=== PATIENT | male | born 1980 | race Hispanic/Latino ===

== ENCOUNTER 2017-09-17 16:10 | Emergency (ER) | payer OTHER ==
[2017-09-17 16:15] VITALS: BP 162/82; PULSE 16; RESP 96; TEMP 98.8; O2SAT 96
[2017-09-17 16:16] VITALS: BMI 32.7
--- NOTE | 2017-09-17 16:26 | ED PDOC ---
Lower Extremity Pain/Injury Time Seen by Provider: 09/17/17 16:17 Chief Complaint (Nursing): Lower Extremity Problem/Injury History Per: Patient Onset/Duration Of Symptoms: Days (2) Severity: Moderate Pain Scale Rating Of: 4 Additional Complaint(s): S/p tendon surgery left foot 11 days ago. Has had pain and fever. pain at surgical site. Denies calf pain or Chest pain or SOB. T max 102.4 Past Medical History Vital Signs: Last Vital Signs Temp 98.8 F 09/17/17 16:15 Pulse 16 L 09/17/17 16:15 Resp 96 H 09/17/17 16:15 BP 162/82 H 09/17/17 16:15 Pulse Ox 96 09/17/17 16:15 - Medical History PMH: Hypothyroidism - Family History Family History: States: Unknown Family Hx - Home Medications Home Medications: Ambulatory Orders Medication Instructions Recorded traMADol [Ultram] 50 mg PO Q8 #10 tab 09/17/17 - Allergies Allergies/Adverse Reactions: Allergies Allergy/AdvReac Type Severity Reaction Status Date / Time Penicillins Allergy Mild RASH Verified 09/17/17 16:18 Review of Systems Constitutional: Positive for: Fever Cardiovascular: Negative for: Chest Pain Respiratory: Negative for: Shortness of Breath Musculoskeletal: Positive for: Foot Pain Physical Exam - Physical Exam Appears: Positive for: Non-toxic, No Acute Distress Skin: Positive for: Normal Color, Warm, DRY Extremity: Positive for: Other (Left ankle /foot. Wound clean and dry. No drainage. Mild erythema and swelling surrounding incision site.). Negative for : Calf Tenderness, Swelling (No calf swelling) - Laboratory Results Result Diagrams: 09/17/17 17:10 09/17/17 17:10 - ECG O2 Sat by Pulse Oximetry: 96 Medical Decision Making Medical Decision Making: Discussed with podiatry. No evidence of infection at surgical site No other source of infevtion idebntified. Will DC antibiotics as this may have been rxn to meds. To f/u with Dr. Esteban tomorrow Disposition - Clinical Impression Clinical Impression: Fever - Patient ED Disposition Is Patient to be Admitted: No Counseled Patient/Family Regarding: Studies Performed, Diagnosis, Need For Followup - Disposition Referrals: Gagandeep Esteban MD [Staff Provider] - Disposition: Routine/Home Disposition Time: 18:55 Condition: FAIR Prescriptions: traMADol [Ultram] 50 mg PO Q8 #10 tab Instructions: Fever of Unknown Origin Forms: [email or web address] [facility] (Gambian)
--- NOTE | 2017-09-17 16:33 | CP.PCM.CON ---
History of Present Illness - History of Present Illness History of Present Illness: Podiatry Consult Note - Dr. Esteban 36 year old male patient presents to [facility] ED complaining of left ankle redness and swelling 11 days s/p ankle arthroscopy and lateral ankle stabilization. After surgery patient was discharged WBAT in CAM walker with the assistance of a cane. Patient was not able to tolerate this so obtained crutches for additional balance. Patient states he was febrile for 3 days after surgery with redness and swelling in his left foot. Patient had an appointment with Dr. Esteban last Monday and was given bactrim; contacted Dr. Esteban this morning reporting a fever of 102.4F along with 1 episode of vomiting, so was told to go to [facility] ED for further evaluation. Patient also complains of sharp, shooting pain in his left ankle. Denies SOB. Denies urinary frequency or hesitancy. Last BM 2 days ago with possible constipation. Denies nausea, diarrhea, headache, dizziness. Review of Systems - Review of Systems All systems: reviewed and no additional remarkable complaints except (as per HPI ) Past Patient History - ENDOCRINE/METABOLIC Hx Hypothyroidism: Yes Meds Home Medications: Home Medication List Medication Instructions Recorded Confirmed Type traMADol [Ultram] 50 mg PO Q8 #10 tab 09/17/17 Rx Allergies/Adverse Reactions: Allergies Allergy/AdvReac Type Severity Reaction Status Date / Time Penicillins Allergy Mild RASH Verified 09/17/17 16:18 Physical Exam - Constitutional Appears: Well, Non-toxic, No Acute Distress - Extremities Exam Additional comments: VASC: DP and PT pulses palpable 2/4 b/l. CFT <3 seconds to all digits 1-5 b/l. Temperature gradient warm to warm b/l, with mild increase in warmth to left foot and ankle. Nonpitting edema noted to left ankle extending distally into forefoot. Hair growth appreciated. NEURO: Gross sensation intact. Hyperesthesia present to left ankle. DERM: LLE=Surgical incisions noted to anteromedial and anterolateral ankle joint as well as lateral ankle - all are well-coapted with sutures intact and no wound dehiscence noted, no drainage or purulence able to be expressed, minimal erythema <0.5cm around incisions; no ascending cellulitis. No foul odor , no fluctuance, no streaking present in left foot RLE=WNL - no open lesions noted, skin well-hydrated ORTHO: Tenderness to palpation surgical incisions. Tenderness upon passive and active ROM left ankle joint. Muscle strength deferred due to chief complaint LLE. No palpable cord present LLE. No pain on palpation left calf. - Neurological Exam Neurological exam: Alert, Oriented x3 - Psychiatric Exam Psychiatric exam: Normal Affect, Normal Mood Results - Vital Signs Recent Vital Signs: Last Vital Signs Temp 98.8 F 09/17/17 16:15 Pulse 16 L 09/17/17 16:15 Resp 96 H 09/17/17 16:15 BP 162/82 H 09/17/17 16:15 Pulse Ox 96 09/17/17 16:28 - Labs Result Diagrams: 09/17/17 17:10 09/17/17 17:10 Assessment & Plan - Assessment and Plan (Free Text) Assessment: 36M with 1) post-op fever likely due to antibiotic reaction 11 days s/p left ankle arthroscopy with lateral ankle stabilization Plan: Patient seen and evaluated Discussed with attending, Dr. Esteban Afebrile currently, WBC 6.0 w/no left shift L foot and ankle XR: unremarkable LLE venous duplex negative for DVT Rapid flu negative Discussed with patient fever possibly due to medications, Bactrim vs. Percocet -Discontinue Bactrim and take temperature q6h tomorrow r/o source of fever. If fever persists through Monday night discontinue Percocet -Follow up with Dr. Esteban in office as scheduled Local wound care - Xeroform, DSD to left ankle Continue WBAT in CAM walker with the assistance of crutches/cane Stable for discharge per podiatry Thank you for the consult, please reconsult podiatry as needed
[2017-09-17 17:17] LABS: VENOUS BLOOD GAS BASE EXCESS 1.9 mmol/L (0.0-2.0); VENOUS BLOOD GAS PCO2 50 mmHg (40-60); VENOUS BLOOD GAS PO2 15 mm/Hg (30-55); VENOUS BLOOD PH 7.36 (7.32-7.43)
[2017-09-17 17:20] LABS: BASO % 0.4 % (0.0-2.0); EOS # 0.2 K/uL (0.0-0.7); EOS % 3.4 % (0.0-4.0); HEMOGLOBIN 15.2 g/dL (12.0-18.0); LYMPH # 0.8 K/uL (1.0-4.3); LYMPH % 14.2 % (20.0-40.0); MEAN CELL VOLUME 84.2 fl (80.0-94.0); MEAN CORPUSCULAR HEMOGLOBIN 29.8 pg (27.0-31.0); MEAN CORPUSCULAR HGB CONC 35.4 g/dL (33.0-37.0); MEAN PLATELET VOLUME 9.5 fl (7.2-11.7); MONO # 0.5 K/uL (0.0-0.8); NEUT # 4.4 K/uL (1.8-7.0); RBC 5.11 Mil/uL (4.40-5.90); RED CELL DISTRIBUTION WIDTH 12.2 % (11.5-14.5)
--- NOTE | 2017-09-17 17:30 | RAD ---
PROCEDURE: Left Ankle Radiographs. HISTORY: r/o osteomyelitis COMPARISON: None FINDINGS: BONES: There is no acute displaced fracture or bone destruction. Bone alignment and mineralization are normal. There are screw tracks in the distal tibia and fibula. JOINTS: Normal. Ankle mortise maintained. Talar dome intact SOFT TISSUES: There is mild lateral soft tissue swelling. OTHER FINDINGS: None. IMPRESSION: No acute fracture or bone destruction. Mild lateral soft tissue swelling.
--- NOTE | 2017-09-17 17:31 | RAD ---
PROCEDURE: Left Foot Radiographs. HISTORY: r/o osteomyelitis COMPARISON: None. FINDINGS: BONES: There is no acute displaced fracture or bone destruction. Bone alignment and mineralization are normal JOINTS: Normal. SOFT TISSUES: Normal. OTHER FINDINGS: None. IMPRESSION: No acute fracture or dislocation.
[2017-09-17 17:32] LABS: ALB/GLOB RATIO 1.2 (1.0-2.1); ALBUMIN 4.7 g/dL (3.5-5.0); ALT/SGPT 61 U/L (21-72); AST/SGOT 46 U/L (17-59); BLOOD UREA NITROGEN 22 mg/dl (9-20); CALCIUM 9.8 mg/dL (8.4-10.2); GFR AFRICAN-AMERICAN > 60; GFR NON-AFRICAN AMERICAN 54
[2017-09-17 18:27] LABS: URINE BACTERIA RARE (<OCC); URINE BILIRUBIN NEGATIVE (NEGATIVE); URINE BLOOD NEGATIVE (NEGATIVE); URINE CLARITY CLEAR (Clear); URINE COLOR YELLOW (YELLOW); URINE GLUCOSE (UA) NEG (Normal); URINE LEUKOCYTE ESTERASE NEG Leu/uL (Negative); URINE PROTEIN NEGATIVE (NEGATIVE); URINE UROBILINOGEN 0.2-1.0 mg/dL (0.2-1.0)
--- NOTE | 2017-09-18 08:43 | US ---
HISTORY: r/o DVT . PRIORS: None. FINDINGS: 2-D, color and duplex Doppler analysis of the lower extremity venous circulation using routine protocol from the femoral veins through the popliteal veins. Venous compressibility: Normal. Flow and augmentation patterns: Normal. Visualized veins upper third of calf: Normal. Mcgrath cyst: None. IMPRESSION: No sonographic or Doppler evidence for DVT in left lower extremity.
--- NOTE | 2017-09-18 09:04 | RAD ---
HISTORY: fever COMPARISON: No prior. TECHNIQUE: Chest PA and lateral FINDINGS: LUNGS: No active pulmonary disease. PLEURA: No significant pleural effusion identified. No pneumothorax apparent. CARDIOVASCULAR: Normal. OSSEOUS STRUCTURES: No significant abnormalities. VISUALIZED UPPER ABDOMEN: Normal. OTHER FINDINGS: None. IMPRESSION: No active disease.
== END 2017-09-17 19:14 | disposition home or self-care (01) ==
LOC: H.ER 16:10
DX: R50.82 Postprocedural fever (principal); Z88.0 Allergy status to penicillin; E03.9 Hypothyroidism, unspecified